=== PATIENT | female | born 1965 | race Native Hawaiian/Other Pacific Islander ===

== ENCOUNTER 2018-04-04 06:47 | Day surgery (SDC) | payer OTHER ==
[2018-04-03 13:44] VITALS: BMI 30.2
[2018-04-04] MEDS ORDERED: Lactated Ringer's 500 ML IV ONE ×2 (08:36)
[2018-04-04] MEDS ORDERED: Propofol 10 mg/ml Inj (20 ML) ONE (08:37)
--- NOTE | 2018-04-04 08:38 | CP.SDSHP ---
Same Day Surgery H & P - History Proposed Procedure: endoscopy, colonoscopy Pre-Op Diagnosis: reflux, screening colon - Previous Medical/Surgical History Cardiac: Hypertension Endocrine/Metabolic: Diabetes - Allergies Allergies: Allergies No Known Allergies Allergy (Verified 04/03/18 13:43) - Physical Exam Vital Signs: Vital Signs 04/04/18 07:00 Temperature 98 F Pulse Rate 57 L Respiratory 19 Rate Blood Pressure 138/78 O2 Sat by Pulse 97 Oximetry Mental Status: Alert & Oriented x3 Neuro: WNL Heart: WNL Lungs: WNL GI: WNL - {Optional Preform as Required} Abdomen: WNL - Impression Impression: reflux, colon screen Pt. Evaluated Today:Candidate for Anesthesia & Procedure: Yes - Date & Time Date: 04/04/18 Time: 08:38 Short Stay Discharge - Short Stay Discharge Admitting Diagnosis/Reason for Visit: ENCOUNTER FOR SCREENING FOR MALIGNANT NEOPLASM OF Disposition: HOME/ ROUTINE
[2018-04-04] MEDS ORDERED: Simethicone 40 mg/0.6 ml Liquid (30 ml) ONE (08:57)
[2018-04-04 10:05] VITALS: TEMP 97.4
[2018-04-04 10:07] VITALS: PULSE 50; O2SAT 100
[2018-04-04 10:16] VITALS: BP 140/75; RESP 20
== END 2018-04-04 10:15 | disposition home or self-care (01) ==
LOC: C.ENDO 06:47
PROVIDERS: ATTEND Internal Medicine Gastroenterology
DX: Z12.11 Encounter for screening for malignant neoplasm of colon (principal); D12.5 Benign neoplasm of sigmoid colon; K62.1 Rectal polyp; K57.30 Diverticulosis of large intestine without perforation or abscess without bleeding; K64.1 Second degree hemorrhoids; K21.0 Gastro-esophageal reflux disease with esophagitis; K29.50 Unspecified chronic gastritis without bleeding; E11.9 Type 2 diabetes mellitus without complications; I10 Essential (primary) hypertension; E78.5 Hyperlipidemia, unspecified; Z79.84 Long term (current) use of oral hypoglycemic drugs; Z79.899 Other long term (current) drug therapy
CPT/HCPCS: 43239; 45380; 82948; 88305; J2001; J2704; J7120

== ENCOUNTER 2018-06-19 18:22 | Outpatient (CLI) | payer OTHER | END 2018-06-19 18:23 | disposition home or self-care (01) | LOC: C.SLEEP 18:23 | DX: R06.83 Snoring (principal); G47.33 Obstructive sleep apnea (adult) (pediatric) ==